=== PATIENT | male | born 1955 | race Caucasian/White ===

== ENCOUNTER 2021-08-28 09:41 | Inpatient (IN) | payer OTHER, MEDICARE, SELFPAY ==
--- NOTE | 2021-08-28 09:43 | ECG_ITS ---
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 Measurements Intervals Frederica Rate: 64 P: 52 OH: 139 QRS: 21 QRSD: 86 T: 48 QT: 389 QTc: 403 Interpretive Statements SINUS RHYTHM POSSIBLE LEFT ATRIAL ENLARGEMENT [-0.1mV P-WAVE IN V1/V2] No previous ECG available for comparison Electronically Signed On 08-30-2021 9:03:08 CDT by Americo Calero M.D. [email or web address]
[2021-08-28 09:45] VITALS: BP 169/82; PULSE 89; RESP 16; O2SAT 98; BMI 23.5
[2021-08-28 10:16] LABS: Basophils # 0.1 10^3/uL (0.0-0.1); Basophils % 0.9 %; Eosinophils % 0.4 %; Hematocrit 49.1 % (42.0-52.0); Hemoglobin 16.1 g/dL (11.7-16.6); Lymphocytes # 1.2 10^3/uL (0.8-4.8); Lymphocytes % 15.6 %; Mean Corpuscular HGB Conc 32.8 g/dL (30.0-36.0); Mean Corpuscular Hemoglobin 29.9 pg (28.0-34.0); Mean Corpuscular Volume 91.3 fl (80-94); Mean Platelet Volume 11.4 fL (7.4-10.4); Monocytes # 0.7 10^3/uL (0.2-0.9); Monocytes % 8.8 %; Neutrophils # 5.62 10^3/uL (1.8-7.7); Neutrophils % 74.2 %; Nucleated Red Blood Cells % 0 %; Platelet Count 332 10^3/cmm (130-400); Red Blood Count 5.38 10^6/uL (4.1-5.3); White Blood Count 7.6 10^3/uL (4.0-10.0)
[2021-08-28 10:29] LABS: INR 0.94 (0.8-1.2); Partial Thromboplastin Time 23.9 SECONDS (23.9-36.7)
[2021-08-28 10:34] LABS: Alanine Aminotransferase 21 U/L (0-41); Albumin Level 5.3 g/dL (3.5-5.2); Alkaline Phosphatase 100 IU/L (40-130); Anion Gap 15.8 (5-19); Aspartate Amino Transferase 21 U/L (0-40); Blood Urea Nitrogen 23 mg/dL (8-23); Calcium 10.6 mg/dL (8.5-10.5); Carbon Dioxide 27 mmol/L (22-29); Chloride 99 mmol/L (98-107); Globulin 2.3 g/dL (1.3-4.6); Glomerular Filtration Rate 60.8 mL/min (90-130); Glucose 91 mg/dL (65-115); Osmolality Calculated 289 mOsm/kg (285-295); Potassium 3.8 mmol/L (3.5-5.1); Sodium 138 mmol/L (136-145); Total Bilirubin 0.4 mg/dL (0.15-1.2); Total Protein 7.6 g/dL (6.6-8.7)
[2021-08-28 10:35] LABS: Acetaminophen < 5.0 ug/mL (10-30); Alcohol Level < 10 mg/dL (0-10); Salicylate < 0.3 mg/dL (3-10)
--- NOTE | 2021-08-28 10:51 | W.ED.PSYCHS ---
HPI - Psych General: Chief Complaint: Psychiatric Symptoms Stated Complaint: RAT POISON INGESTION Time Seen by Provider: 08/28/21 09:43 Source: patient Mode of arrival: EMS Limitations: no limitations History of Present Illness: 66-year-old male presents emergency room with complaints of suicidal ideation. Yesterday he became upset and took some rat poison. He reports having taken about 50 small pellets out of a bag. He did it with the intent to harm himself. He denies doing anything else to harm himself. He has previously made attempts to harm himself and has been hospitalized for those. He usually follows at the [facility]. patient denies any medication melena times coffee-ground emesis. He is not had any hematuria no epistaxis no other signs of bleeding from any source. MD complaint: suicidal ideation Onset (ago): day(s) Duration: intermittent Relieving factors: none Exacerbating factors: none Associated psychiatric symptoms: none Associated symptoms: Reports depression and suicidal ideation; Deny auditory hallucinations, visual hallucinations, delusions, homicidal ideation or racing thoughts Treatments prior to arrival: none If self harm: admits thoughts of self harm, has plan and has acted on plan Details of plan: Ingestion of rat poison Review of Systems Const: Denies: fever(s), chills, body aches, change in appetite, fatigue or malaise ENMT: Denies: throat pain, ear or mastoid pain, nasal discharge or nasal congestion Card: Denies: chest pain, edema, dyspnea on exertion or orthopnea Resp: Denies: dyspnea, productive cough or non-productive cough GI: Denies: abdominal pain, nausea, vomiting, hematemesis, coffee ground emesis, diarrhea, constipation, bloating, hematochezia or melena : Denies: flank pain, dysuria, urinary frequency or urinary urgency Skin/Breast: Denies: rash or pruritus Psych: Reports: depression and suicidal ideation; Denies: visual hallucinations, auditory hallucinations or homicidal ideation [facility] ED PFSH: Medical History Depression with suicidal ideation Social History Smoking and tobacco status: never smoked Alcohol intake: unknown Physical Exam Const: COMMON NORMALS: no acute distress GENERAL APPEARANCE: cooperative and comfortable ORIENTATION/CONSCIOUSNESS: Yes awake, Yes oriented to person, Yes oriented to place and Yes oriented to time HENMT: COMMON NORMALS: normocephalic, atraumatic, hearing grossly normal bilaterally, external ears normal, EAC's normal, TM's normal bilaterally, Normal nasal mucous membranes and turbinates present, moist oral mucous membranes and oropharynx normal HEAD & SCALP: normocephalic and atraumatic NOSE: Normal nasal mucous membranes and turbinates present EXTERNAL EAR: Yes external ears normal EXTERNAL AUDITORY CANAL: EAC's normal TYMPANIC MEMBRANE: TM's normal bilaterally Eye: COMMON NORMALS: Equal, round and reactive pupils present, EOMs intact bilaterally, conjunctivae normal and no scleral icterus CONJUNCTIVA: Yes conjunctivae normal PUPIL: Yes Equal, round and reactive pupils present Neck/C-Spine: COMMON NORMALS: full ROM, no lymphadenopathy, supple and no JVD Lymph: LYMPHATIC: no lymphadenopathy noted and no lymphedema noted Resp: COMMON NORMALS: normal respiratory effort, No retractions, No use of accessory muscles and clear to auscultation bilaterally AUSCULTATION: clear to auscultation bilaterally Cardio: COMMON NORMALS: no JVD, regular rate, regular rhythm and No murmurs present (Cardio) RATE: regular rate RHYTHM: regular rhythm GI: COMMON NORMALS: Soft to palpation and No hepatosplenomegaly present AUSCULTATION: Yes normoactive bowel sounds PALPATION: Yes Soft to palpation, No Tenderness to palpation present (GI), No Guarding due to palpation present (GI) and Yes No hepatosplenomegaly present Extremity: COMMON NORMALS: normal to inspection, capillary refill normal, no clubbing, cyanosis or edema, no calf tenderness and no pedal edema Neuro: SENSORIUM/ORIENTATION: Yes oriented to person, Yes oriented to place and Yes oriented to time Psych: THOUGHT CONTENT: No delusions Skin: COMMON NORMALS: no rashes or lesions noted GENERAL SKIN EXAM: no rashes or lesions noted Course Vital Signs: Vital signs: Vital Signs Temperature 98 F 09/02/21 13:27 Pulse Rate 74 09/02/21 13:27 Respiratory Rate 19 H 09/02/21 13:27 Blood Pressure 130/76 09/02/21 13:27 Pulse Oximetry 94 09/02/21 13:27 [facility] [place] - Psych Medical Decision Making Admit for suicide attempt. Discussed with hospitalist and with Dr. Oswald. Will admit and monitor PT/INR in the psychiatry unit patient has no sign of bleeding at this time Medical Records I reviewed the patient's medical records. Lab Data I reviewed the patient's lab results. : 08/30/21 12:20 08/28/21 09:05 Laboratory Results WBC 7.6 10^3/uL (4.0-10.0) 08/28/21 09:05 RBC 5.38 10^6/uL (4.1-5.3) H 08/28/21 09:05 Hgb 16.1 g/dL (11.7-16.6) 08/28/21 09:05 Hct 49.1 % (42.0-52.0) 08/28/21 09:05 MCV 91.3 fl (80-94) 08/28/21 09:05 MCH 29.9 pg (28.0-34.0) 08/28/21 09:05 MCHC 32.8 g/dL (30.0-36.0) 08/28/21 09:05 RDW 13.0 % (12.1-15.1) 08/28/21 09:05 Plt Count 332 10^3/cmm (130-400) 08/28/21 09:05 MPV 11.4 fL (7.4-10.4) H 08/28/21 09:05 Neut % (Auto) 74.2 % 08/28/21 09:05 Lymph % (Auto) 15.6 % 08/28/21 09:05 [place] % (Auto) 8.8 % 08/28/21 09:05 Eos % (Auto) 0.4 % 08/28/21 09:05 Baso % (Auto) 0.9 % 08/28/21 09:05 Neut # (Auto) 5.62 10^3/uL (1.8-7.7) 08/28/21 09:05 Lymph # (Auto) 1.2 10^3/uL (0.8-4.8) 08/28/21 09:05 [place] # (Auto) 0.7 10^3/uL (0.2-0.9) 08/28/21 09:05 Eos # (Auto) 0.0 10^3/uL (0.0-0.8) 08/28/21 09:05 Baso # (Auto) 0.1 10^3/uL (0.0-0.1) 08/28/21 09:05 Nucleated RBC % (auto) 0 % 08/28/21 09:05 Nucleated RBCs # 0.0 /100WBC 08/28/21 09:05 PT 12.90 SECONDS (12.1-14.9) 08/28/21 09:05 INR 0.94 (0.8-1.2) 08/28/21 09:05 APTT 23.9 SECONDS (23.9-36.7) 08/28/21 09:05 Sodium 138 mmol/L (136-145) 08/28/21 09:05 Potassium 3.8 mmol/L (3.5-5.1) 08/28/21 09:05 Chloride 99 mmol/L (98-107) 08/28/21 09:05 Carbon Dioxide 27 mmol/L (22-29) 08/28/21 09:05 Anion Gap 15.8 (5-19) 08/28/21 09:05 BUN 23 mg/dL (8-23) 08/28/21 09:05 Creatinine 1.2 mg/dL (0.7-1.2) 08/28/21 09:05 GFR Calculation 60.8 mL/min (90-130) L 08/28/21 09:05 Glucose 91 mg/dL (65-115) 08/28/21 09:05 Calculated Osmolality 289 mOsm/kg (285-295) 08/28/21 09:05 Calcium 10.6 mg/dL (8.5-10.5) H 08/28/21 09:05 Total Bilirubin 0.4 mg/dL (0.15-1.2) 08/28/21 09:05 AST 21 U/L (0-40) 08/28/21 09:05 ALT 21 U/L (0-41) 08/28/21 09:05 Alkaline Phosphatase 100 IU/L (40-130) 08/28/21 09:05 Total Protein 7.6 g/dL (6.6-8.7) 08/28/21 09:05 Albumin 5.3 g/dL (3.5-5.2) H 08/28/21 09:05 Globulin 2.3 g/dL (1.3-4.6) 08/28/21 09:05 Urine Color Yellow (Yellow) 08/28/21 10:51 Urine Appearance Clear (CLEAR) 08/28/21 10:51 Urine pH 5 (5-7) 08/28/21 10:51 Ur Specific [place] 1.025 (1.005-1.030) 08/28/21 10:51 Urine Protein Neg (Negative) 08/28/21 10:51 Urine Glucose (UA) Norm (Normal) 08/28/21 10:51 Urine Ketones 1+ (Negative) H 08/28/21 10:51 Urine Blood 2+ (Negative) H 08/28/21 10:51 Urine Nitrate Negative (Negative) 08/28/21 10:51 Urine Bilirubin Neg (Negative) 08/28/21 10:51 Urine Urobilinogen Norm mg/dL (Negative) 08/28/21 10:51 Ur Leukocyte Esterase Negative (Negative) 08/28/21 10:51 Urine RBC 5-10 /hpf (0-2) H 08/28/21 10:51 Urine WBC None /hpf (0-5) 08/28/21 10:51 Ur Squamous Epith Cells Rare /hpf (0-5) 08/28/21 10:51 Amorphous Sediment Not Reportable 08/28/21 10:51 Urine Bacteria None /hpf (NONE) 08/28/21 10:51 Urine Mucus Trace /hpf 08/28/21 10:51 Salicylates < 0.3 mg/dL (3-10) L 08/28/21 09:05 Acetaminophen < 5.0 ug/mL (10-30) L 08/28/21 09:05 Ethyl Alcohol < 10 mg/dL (0-10) 08/28/21 09:05 Discharge Plan Discharge Patient Disposition: Admitted As Inpatient Admit Provider: Mark Oswald Clinical Impression: Suicide attempt Condition: Stable Discharge Diet: Regular Discharge Activity: Resume usual activity Coding Level of Care Code ED Visual Supervisor for Chg Fwd Exam Comprehensive
--- NOTE | 2021-08-28 11:06 | PC.PHAR ---
PT STATES HE TAKES TAMSULOSIN AND FINASTERIDE ONCE DAILY, A CHOLESTEROL MEDICATION AND STATES IT IS A STATIN DRUG BUT UNSURE WHICH ONE. [facility]ED [facility] AT 11:05, WAITING FOR RESPONSE.
[2021-08-28 11:15] LABS: Specific Gravity, Urine 1.025 (1.005-1.030); Urine Appearance Clear (CLEAR); Urine Color Yellow (Yellow); pH Urine 5 (5-7)
[2021-08-28 11:16] LABS: Add Urine Microscopic? YES; Bilirubin Urine Neg (Negative); Blood Urine 2+ (Negative); Glucose Urine UA Norm (Normal); Ketones Urine 1+ (Negative); Leukocyte Esterase Urine Negative (Negative); Nitrate Urine Negative (Negative); Protein Urine Neg (Negative); Urobilinogen Urine Norm (Negative)
[2021-08-28 11:17] LABS: Mucus Urine TRACE /hpf; Squamous Epithelial Cell Urine RARE /hpf (0-5)
[2021-08-28 11:18] LABS: Add Urine Culture? No
--- NOTE | 2021-08-28 11:27 | PC.NURSE ---
pt ferris secured in envelope in security safe, please see scanned receipt for amount and verification signatures
[2021-08-28 12:21] VITALS: BP 155/86; RESP 14; O2SAT 98
[2021-08-28 14:27] VITALS: BP 157/63; PULSE 100; RESP 14; O2SAT 100
[2021-08-28 14:47] VITALS: BP 152/81; PULSE 69; RESP 18; TEMP 36.8; O2SAT 98
--- NOTE | 2021-08-28 15:12 | PC.NURSE ---
POISON CONTROL POISON CONTROL CALLED UNIT REGARDING PT'S RECENT INGESTION OF RODENTICIDE. POISON CONTROL INSTRUCTED NURSING TO MONITOR FOR ANY S/S OF ABNORMAL BLEEDING AND TO CHECK COAG LABS TO MONITOR FOR PT AND/OR INR INCREASE, WELL A VITAMIN D LEVEL TOMORROW MORNING TO MONITOR FOR INCREASE. PT MAY ALSO NEED OUTPATIENT FOLLOW UP TO MONITOR VITAMIN D AND CALCIUM LEVELS. THIS WAS RELAYED TO PHYSICIAN AND LEATHER CLEANER WILL INFORM ONCOMING NURSING STAFF.
[2021-08-28] MEDS: phytonadione (ADULT) 10 mg/mL Ampule 1 mL PO (15:59)
[2021-08-28 20:49] VITALS: BP 130/86; PULSE 63; RESP 16; TEMP 36.8; O2SAT 98
[2021-08-29 06:00] VITALS: BP 134/74; PULSE 69; RESP 18; TEMP 36.8; O2SAT 96; BMI 27.3
[2021-08-29 07:40] LABS: INR 1.01 (0.8-1.2)
[2021-08-29 07:41] LABS: Partial Thromboplastin Time 26.8 SECONDS (23.9-36.7)
[2021-08-29 07:42] LABS: Fibrinogen 258 mg/dL (174-498)
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
[2021-08-29 09:01] LABS: Platelet Count 301 10^3/cmm (130-400)
--- NOTE | 2021-08-29 09:04 | PC.NURSE ---
Pt attempting to repair window shade. States it is causing him anxiety when it pops up . Maintenance notified. Pt denies SI/HI. Denies pain. Talking to self in mirror.
--- NOTE | 2021-08-29 11:38 | PC.NURSE ---
Spoke with poison control. Lab values provided. Vit D levels still pending. No plan reported at this time. Only documentation available is ED report. Poison control will call daily for update.
[2021-08-29] MEDS: escitalopram 10 mg Tablet PO (12:43)
--- NOTE | 2021-08-29 13:00 | PC.NURSE ---
PRN REFRESH TEARS GIVEN 1 DROP EACH EYE FOR PT C/O EYE DRYNESS
[2021-08-29 14:00] VITALS: BP 138/74; PULSE 64; RESP 20; TEMP 36.6; O2SAT 93
[2021-08-29 20:18] VITALS: BP 147/68; PULSE 60; RESP 18; TEMP 36.4; O2SAT 96
[2021-08-30 06:00] VITALS: BP 115/74; PULSE 67; RESP 16; TEMP 36.8; O2SAT 95
--- NOTE | 2021-08-30 08:53 | PC.NURSE ---
refused scheduled lexapro
[2021-08-30 13:26] LABS: INR 0.99 (0.8-1.2)
[2021-08-30 13:27] LABS: Fibrinogen 252 mg/dL (174-498)
[2021-08-30 13:29] LABS: Calcium 9.7 mg/dL (8.5-10.5)
[2021-08-30 14:00] VITALS: BP 155/84; PULSE 64; RESP 18; TEMP 36.8; O2SAT 97
[2021-08-30 14:43] LABS: Platelet Count 332 10^3/cmm (130-400)
--- NOTE | 2021-08-30 15:08 | W.PM.NPUPNS ---
Subjective NPU Subjective: Patient presents today reporting that he did not take the medication because the day before he had symptoms he attributed to the medication. Specifically he reported that he had shakiness, anxiety and some feelings of unsteadiness. We discussed that his lack of desire to take the medication likely impacted his symptoms. And given that he took the overdose of rat poison we are in an odd situation and trying to make sure he is safe at discharge. Medications: Medication Review Details: This is a well-nourished, well-developed older white male looking slightly younger than his stated age with hospital scrubs on and appropriate grooming and eye contact. No abnormal movements except for mild psychomotor retardation. Cooperative with exam in mild distress. Speech was decreased rate and volume. Mood described as better, affect congruent and subdued. Thought process, organized. Thought content: patient denies any suicidal or homicidal ideation, no delusions reported or noted, and denies any auditory or visual hallucinations. Attention and concentration are intact and memory is reliable but none were formally tested. He is alert and oriented three times. Insight and judgment are fair. Impulse control is limited versus impaired. Vitals/I&O/Wt Last Vital Signs Temp 98.2 F 08/30/21 06:00 Pulse 67 08/30/21 06:00 Resp 16 08/30/21 06:00 BP 115/74 08/30/21 06:00 Pulse Ox 95 08/30/21 06:00 Weight last 48 hrs Weight 79.107 kg Data NPU : 08/30/21 12:20 08/28/21 09:05 A&P Assessment and plan (1) Suicidal ideation: Status: Acute (2) Suicide attempt: Status: Acute (3) Anxiety: Status: Acute (4) Major depressive disorder, recurrent: Status: Acute (5) PTSD (post-traumatic stress disorder): Status: Acute Plan This is a 66 year old white male with a long history of significant traumas, early lose of his mother, difficulty making social connections, who presents after a suicide attempt resistant to medication. Continue current medications. We will try to convince him to try Lexapro at a lower dose or consider an alternative antidepressant like Wellbutrin. Encourage individual, group and milieu therapy Continue q-15 minute check for safety We will continue to monitor him on a 96-hour hold given the seriousness of his overdose and recheck the labs as directed by the Poison Control Center. Involuntary Hold Information 96 Hour Hold: 96 Hour Involuntary Admission: Yes 96 Hour Hold Ending Date: 09/03/21 96 Hour Hold Ending Time: 00:01 Attestations NPU Medical Necessity Statement*: Inpatient hospitalization is medically necessary and the clinically appropriate intervention at this time. We will monitor medications and make changes as indicated. Likely length of stay is 2-4 days. 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
[2021-08-30 20:23] VITALS: BP 132/84; PULSE 64; RESP 17; TEMP 37.3; O2SAT 97
[2021-08-31 06:00] VITALS: BP 109/69; PULSE 60; RESP 19; TEMP 36.8; O2SAT 99
[2021-08-31 09:06] LABS: Calcium 9.7 mg/dL (8.5-10.5)
[2021-08-31 09:35] LABS: INR 0.96 (0.8-1.2)
[2021-08-31 09:37] LABS: Partial Thromboplastin Time 24.9 SECONDS (23.9-36.7)
--- NOTE | 2021-08-31 10:58 | PC.NURSE ---
Patient refused scheduled medication this morning. States he does not like the side effects.
--- NOTE | 2021-08-31 10:58 | PC.NURSE ---
TINA spoke with Nithin, from poison control. He is glad to hear that his levels are stable. They will continue to check back daily regarding the vitamin D level.
[2021-08-31 14:00] VITALS: BP 116/75; PULSE 72; RESP 17; TEMP 36.9; O2SAT 98
--- NOTE | 2021-08-31 17:56 | W.PM.NPUPNS ---
Subjective NPU Subjective: Patient presents today reporting that he is feeling much better. He did agree that he would try medication again either a lower dose of the Lexapro or different medication that we felt it might help and feeling comfortable with her leaving and help him in his symptom cluster. We discussed the risk benefits and alternatives of initiating Prozac and he understood agreed to proceed as is documented in his note. We discussed the likely plan for discharge tomorrow unless he would sign in for an additional day of observation. He reports that the offending agent/rapamycin is gone. Mental Status Exam MSE Comments: This is a well-nourished, well-developed older white male looking slightly younger than his stated age with hospital scrubs on and appropriate grooming and eye contact. No abnormal movements except for mild psychomotor retardation. Cooperative with exam in no acute distress. Speech was more normal rate and volume. Mood described as a little better, affect congruent. Thought process, organized. Thought content: patient denies any suicidal or homicidal ideation, no delusions reported or noted, and denies any auditory or visual hallucinations. Attention and concentration are intact and memory is reliable but none were formally tested. He is alert and oriented three times. Insight and judgment are fair. Impulse control is limited. Vitals/I&O/Wt Last Vital Signs Temp 98.0 F 08/31/21 22:00 Pulse 80 08/31/21 22:00 Resp 17 08/31/21 22:00 BP 126/69 08/31/21 22:00 Pulse Ox 98 08/31/21 22:00 Data NPU : 08/30/21 12:20 08/28/21 09:05 A&P Assessment and plan (1) Suicidal ideation: Status: Acute (2) Suicide attempt: Status: Acute (3) Anxiety: Status: Acute (4) Major depressive disorder, recurrent: Status: Acute (5) PTSD (post-traumatic stress disorder): Status: Acute Plan This is a 66 year old white male with a long history of significant traumas, early lose of his mother, difficulty making social connections, who presents after a suicide attempt resistant to medication. Continue current medications.? We will discontinue Lexapro officially and start Prozac given his need to control for possible cost variables. Encourage individual, group and milieu therapy Continue q-15 minute check for safety We will continue to monitor him on a 96-hour hold given the seriousness of his overdose and recheck the labs as directed by the Poison Control Center. Involuntary Hold Information 96 Hour Hold: 96 Hour Involuntary Admission: Yes 96 Hour Hold Ending Date: 09/03/21 96 Hour Hold Ending Time: 00:01 Attestations NPU Medical Necessity Statement*: Inpatient hospitalization is medically necessary and the clinically appropriate intervention at this time. We will monitor medications and make changes as indicated. Likely length of stay is 1-3 days. 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
[2021-08-31 22:00] VITALS: BP 126/69; PULSE 80; RESP 17; TEMP 36.7; O2SAT 98
[2021-09-01 06:00] VITALS: BP 114/72; PULSE 62; RESP 18; TEMP 36.8; O2SAT 97
[2021-09-01] MEDS: fluoxetine 20 mg Capsule PO (08:38)
--- NOTE | 2021-09-01 09:42 | PC.NURSE ---
PT UP THIS MORNING. BRIGHT AFFECT. DENIES ANY SI/HI OR AVH. REPORTS RESTING WELL DURING NIGHT. A&OX4, GOOD EYE CONTACT. TOOK MORNING MEDS WITHOUT ISSUE.
--- NOTE | 2021-09-01 11:43 | NPU.GN ---
[facility] Topic:James Schuler General Mood of Group: Patient did attend group today. Hygiene was good, demeanor was good and he was social. Patient seems stable at this time.
[2021-09-01 13:14] VITALS: BP 112/58; PULSE 70; RESP 17; TEMP 36.6; O2SAT 96
--- NOTE | 2021-09-01 17:23 | W.PM.NPUPNS ---
Subjective NPU Subjective: Patient presents today reporting that he is feeling much better. He reports that the Prozac did not cause the same problems that the Lexapro did with physical side effects and agitation. He had multiple past that he needed to address and was very future oriented. He endorsed working with the social work team for plan to maximize his functioning moving forward. He denied ongoing lethality and we discussed plans for discharge in the morning. Mental Status Exam MSE Comments: This is a well-nourished, well-developed older white male looking slightly younger than his stated age with hospital scrubs on and appropriate grooming and eye contact. No abnormal movements except for mild psychomotor retardation. Cooperative with exam in no acute distress. Speech was more normal rate and volume. Mood described as better, affect congruent. Thought process, organized. Thought content: patient denies any suicidal or homicidal ideation, no delusions reported or noted, and denies any auditory or visual hallucinations. Attention and concentration are intact and memory is reliable but none were formally tested. He is alert and oriented three times. Insight and judgment are fair. Impulse control is limited. Vitals/I&O/Wt Last Vital Signs Temp 98.1 F 09/01/21 19:27 Pulse 70 09/01/21 19:27 Resp 18 09/01/21 19:27 BP 120/70 09/01/21 19:27 Pulse Ox 97 09/01/21 19:27 Data NPU : 08/30/21 12:20 08/28/21 09:05 A&P Assessment and plan (1) Suicidal ideation: Status: Acute (2) Suicide attempt: Status: Acute (3) Anxiety: Status: Acute (4) Major depressive disorder, recurrent: Status: Acute (5) PTSD (post-traumatic stress disorder): Status: Acute Plan This is a 66 year old white male with a long history of significant traumas, early lose of his mother, difficulty making social connections, who presents after a suicide attempt resistant to medication. Continue current medications.? We will discontinue Lexapro officially and started Prozac 20 mg p.o. every morning given his need to control for possible cost variables. Encourage individual, group and milieu therapy Continue q-15 minute check for safety We will continue to monitor him on a 96-hour hold given the seriousness of his overdose and recheck the labs as directed by the Poison Control Center. We will check to see the timeline on the lab send outs and make sure we are able to contact him if there were any concerns. Involuntary Hold Information 96 Hour Hold: 96 Hour Involuntary Admission: Yes 96 Hour Hold Ending Date: 09/03/21 96 Hour Hold Ending Time: 00:01 Attestations NPU Medical Necessity Statement*: Inpatient hospitalization is medically necessary and the clinically appropriate intervention at this time. We will monitor medications and make changes as indicated. Likely length of stay is 1-3 days. Plan for discharge in the morning. 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
[2021-09-01 19:27] VITALS: BP 120/70; PULSE 70; RESP 18; TEMP 36.7; O2SAT 97
[2021-09-02 06:00] VITALS: BP 130/76; PULSE 74; RESP 19; TEMP 36.6; O2SAT 94
[2021-09-02] MEDS: fluoxetine 20 mg Capsule PO (09:13)
[2021-09-02 10:27] LABS: Vit D 1,25 (Oh)2, Total 66 pg/mL (18-72); Vit D2 1,25 (Oh)2 <8 pg/mL; Vit D3 1,25 (Oh)2 66 pg/mL
--- NOTE | 2021-09-02 12:32 | NPU.GN ---
[facility] Topic:Dice Breaker General Mood of Group Patient did not attend group today. Patient was sleeping.
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
[2021-09-02 13:27] VITALS: BP 130/76; PULSE 74; RESP 19; TEMP 36.6; O2SAT 94
[2021-09-02] MEDS: haloperidol 5 mg Tablet PO (13:55)
--- NOTE | 2021-09-02 14:31 | DCPLANNER ---
IMM was completed with pt on 09/02/21 @ [id number]. Pt was given a copy of his rights.
--- NOTE | 2021-09-02 14:57 | PC.NURSE ---
Prn note Patient discharged instructions given per physician orders. Patient verbalized understanding. Patient left ambulatory to uber ride.
[2021-09-03 12:22] LABS: Vit D 1,25 (Oh)2, Total 55 pg/mL (18-72); Vit D2 1,25 (Oh)2 <8 pg/mL; Vit D3 1,25 (Oh)2 55 pg/mL
== END 2021-09-02 14:58 | disposition home or self-care (01) | DRG 918 ==
LOC: ER 11:54 → NP 12:25
PROVIDERS: Admitting Provider Psychiatry & Neurology Psychiatry; Emergency Provider Family Medicine; PCP Family Medicine; Visit Provider Psychiatry & Neurology Psychiatry
DX: T60.4X2A Toxic effect of rodenticides, intentional self-harm, initial encounter (principal); F33.9 Major depressive disorder, recurrent, unspecified; R45.851 Suicidal ideations; F43.10 Post-traumatic stress disorder, unspecified; F41.9 Anxiety disorder, unspecified; Z91.49 Other personal history of psychological trauma, not elsewhere classified
CPT/HCPCS: 36415; 80053; 80307; 81001; 82310; 82652; 85025; 85049; 85384; 85610; 85730; 93005; 97150; 97165; 99285; J3430

== ENCOUNTER 2024-02-20 13:06 | Outpatient (CLI) | payer OTHER, SELFPAY ==
--- NOTE | 2024-02-20 13:11 | XR_ITS ---
WS: [id number] DEXA (DUAL ENERGY X-RAY ABSORPTIOMETRY) Bone mineral density was performed using a Zakada machine. HISTORY: HX COMPRESSION FRACTURE THORACIC COMPARISON: None available. Lumbar spine BMD (L1-L4): 0.927 g/cm2 T score: -2.4 Z score: -1.7 Total hip BMD: Left: 0.756 g/cm2. T score: -2.4 Z score: -1.6 Right: 0.706 g/cm2. T score: -2.7 Z score: -1.9 10 year probability of a major osteoporotic fracture is 13.0%. XR/XR DEXA axial skeleton* [id number] IMPRESSION: OSTEOPOROSIS. Male patient.
== END 2024-02-20 13:07 | disposition home or self-care (01) ==
PROVIDERS: PCP Family Medicine; Visit Provider Family Medicine
DX: M81.0 Age-related osteoporosis without current pathological fracture (principal)
CPT/HCPCS: 77080

== ENCOUNTER → 2025-03-25 12:27 | Outpatient (BNVA) | payer OTHER, SELFPAY | PROVIDERS: PCP Family Medicine; Visit Provider Surgery | DX: R10.32 Left lower quadrant pain (principal); R03.0 Elevated blood-pressure reading, without diagnosis of hypertension | CPT/HCPCS: 99204 ==

== ENCOUNTER 2025-04-01 15:21 | Outpatient (CLI) | payer OTHER, SELFPAY ==
[2025-04-01] MEDS: iohexol 350 mg/mL 500 mL Btl (per mL) PO (15:41)
--- NOTE | 2025-04-01 16:30 | CT_ITS ---
WS: [id number] CT ABDOMEN AND PELVIS WITH CONTRAST HISTORY: LLQ abd pain TECHNIQUE: Imaging performed of the abdomen and pelvis with IV contrast. Single phase imaging of the abdomen. Coronal and sagittal reformats are submitted. All CT scans at [facility] use at least one of these dose optimization techniques: automated exposure control; mA and/or kV adjustment per patient size (includes targeted exams where dose is matched to clinical indication); or iterative reconstruction. IV CONTRAST: Omnipaque 350; 100 mL IV. Oral contrast: Yes. DLP: 279.18 mGy.cm COMPARISON: None available. Lower thorax: Lung bases are clear. Heart is normal size. Moderate size hiatal hernia. Liver/biliary system: Normal size with no intrahepatic dilatation. Gallbladder: Several stones are present within the gallbladder. Largest stone measures 12 mm in diameter. No pericholecystic fluid. Pancreas: Normal size pancreas and pancreatic duct. No adjacent inflammation. Spleen: Normal size spleen. No mass or infarct. Adrenal glands: Normal. Right kidney: Normal. Left kidney: Normal. Aorta: Mild atherosclerosis with no aneurysm. Lymphadenopathy: None. Free fluid: None. GI tract: No obstruction or colitis. Appendix is only partially visualized and appears normal. There are a few diverticula in the distal colon but no evidence for acute diverticulitis. No obstruction. Abdominal wall: Unremarkable abdominal wall. No hernia. Pelvis: No free fluid or adenopathy within the pelvis. Urinary bladder is well distended. No enhancing lesions. Heterogeneous prostate gland encroaches into the bladder. Mild enlargement of the prostate. Bones: Increase in lumbar lordosis. L4 anterolisthesis by 3 mm. Mild anterior wedging of T11. Fat-containing LEFT inguinal canal. Very small inguinal hernia. CT/CT abdomen pelvis w con* [id number] IMPRESSION: 1. No acute abdominal or pelvic abnormalities are identified. 2. No GI tract obstruction. Mild constipation and tortuosity of the colon and a few sigmoid diverticula. No diverticulitis. 3. Cholelithiasis without acute cholecystitis. 4. No renal obstruction. 5. Moderate hiatal hernia. 6. Very small fat-containing LEFT inguinal hernia.
[2025-04-01 16:43] LABS: Blood Urea Nitrogen 15 mg/dL (8-23)
[2025-04-01] MEDS: iohexol 350 mg/mL 500 mL Btl (per mL) IV (17:01)
== END 2025-04-01 15:22 | disposition home or self-care (01) ==
LOC: RAD 15:22
PROVIDERS: PCP Family Medicine; Visit Provider Surgery
DX: R10.32 Left lower quadrant pain (principal); K59.00 Constipation, unspecified; K63.89 Other specified diseases of intestine; K57.30 Diverticulosis of large intestine without perforation or abscess without bleeding; K80.20 Calculus of gallbladder without cholecystitis without obstruction; K44.9 Diaphragmatic hernia without obstruction or gangrene; K40.90 Unilateral inguinal hernia, without obstruction or gangrene, not specified as recurrent; I70.0 Atherosclerosis of aorta; N42.89 Other specified disorders of prostate; N40.0 Benign prostatic hyperplasia without lower urinary tract symptoms; R93.7 Abnormal findings on diagnostic imaging of other parts of musculoskeletal system; M48.54XA Collapsed vertebra, not elsewhere classified, thoracic region, initial encounter for fracture
CPT/HCPCS: 74177; 82565; 84520